=== PATIENT | female | born 1970 | race Caucasian/White ===

== ENCOUNTER → 2016-06-26 | Outpatient (CLI) | payer BC | END | disposition home or self-care (01) | LOC: LABPAT 12:56 | PROVIDERS: ATTEND Orthopaedic Surgery Orthopaedic Surgery of the Spine | DX: Z01.812 Encounter for preprocedural laboratory examination (principal) | CPT/HCPCS: 87070 ==

== ENCOUNTER 2016-07-04 07:55 | Inpatient (IN) | payer BC ==
[2016-06-25 10:38] VITALS: BMI 32.9
[~2016-07-04 07:55] MED LIST: BACITRACIN 50,000 UNIT, POLYMYXIN B 500,000 UNIT in SODIUM CHLORIDE 0.9% IRRIGATIO 1,00... IRRIGATION ONE; DEXAMETHASONE SOD PHOSPHATE 10 MG/ML 1 ML VIAL IV ONE; LIDOCAINE 1% 20 ML VIAL (10MG/ML) FOR IV START INTRADERMA PRN; MIDAZOLAM 2 MG/2 ML VIAL IV PRN; ONDANSETRON 4 MG/2 ML VIAL IVP ONE; SCOPOLAMINE 1.5MG/72HR PATCH TRANSDERM ONE; ceFAZolin 2 GM in SODIUM CHLORIDE 0.9% 100 ML IVPB ONE
[2016-07-04] MEDS: LACTATED RINGERS 1,000 ML IV SCH (08:34)
[2016-07-04] MEDS ORDERED: ONDANSETRON 4 MG/2 ML VIAL IVP ONE (08:40)
[2016-07-04] MEDS ORDERED: BUPIVACAINE LIPOSOME/PF 1.3% 20 ML, BUPIVACAIN-EPI 0.5%-1:200,000 25 ML, SODIUM CHLORID... MISCELLANE ONE ×3 (09:29)
[2016-07-04] MEDS ORDERED: ROPIVACAINE 246.25 MG, EPINEPHrine 0.5 MG, KETOROLAC 30 MG, cloNIDine HCL/PF 80 MCG, WA... MISCELLANE ONE ×5 (09:45)
[2016-07-04] MEDS ORDERED: HYDROmorphone (PF) 1 MG/ML ONE (10:04)
[2016-07-04] MEDS ORDERED: LIDOCAINE 0.5%-EPI 1:200,000 50 ML VIAL SQ ONE (10:04)
[2016-07-04] MEDS ORDERED: SUCCINYLCHOLINE CHLORIDE 100 MG/5 ML SYR IV ONE (10:04)
[2016-07-04] MEDS ORDERED: PROPOFOL 10 MG/ML 20 ML VIAL IV ONE (10:04)
[2016-07-04] MEDS ORDERED: GELATIN SPONGE,ABSORB (LARGE) 1 EACH SPONGE TOPICAL ONE (10:04)
[2016-07-04] MEDS ORDERED: fentaNYL (PF) 50 MCG/ML 2 ML AMP ONE (10:04)
[2016-07-04] MEDS ORDERED: SODIUM CHLORIDE 0.9% IRRIG 1,000 ML BTL IRRIGATION ONE (10:04)
[2016-07-04] MEDS ORDERED: MIDAZOLAM 2 MG/2 ML VIAL ONE (10:04)
[2016-07-04] MEDS ORDERED: HEPARIN SODIUM,PORCINE 10,000 UNIT/ML 1 ML VIAL ONE (10:04)
[2016-07-04] MEDS ORDERED: BUPIVACAINE (PF) 0.25% 30 ML VIAL SQ ONE (10:04)
[2016-07-04] MEDS ORDERED: ePHEDrine 50 MG/ML 1 ML AMP ONE (10:04)
[2016-07-04] MEDS ORDERED: THROMBIN (BOVINE) 5,000 UNIT VIAL TOPICAL ONE (10:04)
[2016-07-04] MEDS ORDERED: LIDOCAINE 1% INJ 10MG/ML (20 ML MDV) ONE (10:04)
[2016-07-04] MEDS ORDERED: ONDANSETRON 4 MG/2 ML VIAL ONE (10:04)
[2016-07-04] MEDS ORDERED: LACTATED RINGERS 1,000 ML IV ONE ×2 (11:56→14:56)
--- NOTE | 2016-07-04 14:17 | FL ---
EXAMINATION TYPE: FL guidance operating room, XR lumbar spine 2 or 3V DATE OF EXAM: 07/04/2016 2:11 PM CLINICAL HISTORY: Low back pain, lumbar fusion TECHNIQUE: Fluoroscopy. Intraoperative 2 views lumbar spine. COMPARISON: None. FINDINGS: Fluoroscopic guidance was provided during lumbar fusion surgical procedure performed by Dr Angel Morales. A total of 202 seconds of fluoroscopic time was utilized during the procedure and several i ntraoperative spot images was acquired. Images acquired show placement of multilevel bilateral pedicles in the lower lumbar spine with metall ic disc spacer placed L4-L5 level. IMPRESSION: As Above.
[2016-07-04] MEDS ORDERED: SODIUM CHLORIDE 0.9% 50 ML with ceFAZolin 2,000 MG IV ONE ×2 (14:20)
[2016-07-04] MEDS ORDERED: ONDANSETRON 4 MG/2 ML VIAL IVP PRN (15:13)
[2016-07-04] MEDS ORDERED: BENZOCAINE/MENTHOL LOZENG 1 EACH LOZENGE MUCOUS MEM PRN (15:13)
[2016-07-04] MEDS ORDERED: HYDROmorphone 1 MG/ML 1 ML SYRINGE IVP PRN (15:13)
--- NOTE | 2016-07-04 15:23 | P.OP ---
Date of Procedure: 07/04/16 Preoperative Diagnosis: Degenerative scoliosis, spinal stenosis, lateral listhesis L4 5, degenerative disc disease Postoperative Diagnosis: Same Anesthesia: GETA Pathology: none sent Condition: stable Disposition: PACU Description of Procedure: DESCRIPTION OF PROCEDURE(S): BRIEF OPERATIVE NOTE Preoperative Diagnosis: Degenerative scoliosis, lateral listhesis L4 5, spinal stenosis L3 4 L4 5, degenerative disc disease Postoperative Diagnosis: Same Procedure: Minimally invasive Laminectomy and decompression with foraminotomies facetectomy L3 4 L4 5 Minimally invasive Posterior lateral decompression and fusion L3 4 L4 5 with facet fusion Minimally invasive Transforaminal lumbar interbody fusion for a 360 fusion L3 4 L4 5 Discectomy for decompression L3 4 L4 5 Placement of interbody cage graft L3 4 L4 5 Bone marrow aspiration through a separate fascial incision using a bone marrow aspirate device from the left iliac crest Local autogenous bone grafting Use of Cell Saver Use of bone graft extenders Surgeon: Dr. Morales Sales Representative Groceries: Sebastian MALONE who is present throughout the entire the case persistence during positioning, dissection, exposure, visualization, and all crucial elements of the case as well as closure. Anesthesia: General anesthesia Estimated blood loss: Approximately 200 mL with 50 given back through Cell Saver Complications: None apparent Components implanted: K2M a minimally invasive [place] screw system with use of 6 screws measuring 6.5 x 45 mm, 2 rods, 2 [place] interbody cages one osteoamp sponge to supplemental local autogenous bone graft and bone marrow aspirate Disposition: To recovery room in good stable condition. OPERATIVE INDICATIONS The patient has had long-standing issues in their lower back and lower extremities. She was found to have a degenerative scoliosis with a lateral listhesis L4 5. She had significant in her disc disease and evidence of stenosis which correlated with her images and clinical findings. The patient has been through conservative treatment. she is not having any prolonged benefit despite aggressive conservative care. We discussed various treatment options including surgery, and the patient wishes to proceed with surgery We discussed the risk, patient's alternatives and benefits of surgery including but not limited to, risk of bleeding risk of infection, risk of need for further surgery, risk of decreased, loss of motion, muscle function, malunion nonunion, hardware failure, nerve damage, paralysis, heart attack, blindness and . OPERATIVE SUMMARY After discussing all the risks, patient alternatives and benefits at length, the patient elected to proceed with surgical intervention, signed informed consent, and presented for their procedure. The patient was seen and examined in the preoperative holding area and the surgical site was marked. The patient was given antibiotics and brought to the operating room. The patient was sedated and intubated by anesthesia in standard fashion. The patient was positioned on to the operating room table in a prone position on the appropriate frame which was well-padded and well molded. We were careful to pad any bony prominences and pressure points. We were careful to maintain the patient's cervical spine and good neutral alignment and position throughout. The patient was prepped and draped in a normal standard fashion. An appropriate timeout and keystone protocol performed. We were able to proceed with the surgery. The local wound area was infiltrated with local anesthetic. I was able utilize C-arm guidance to establish appropriate position over the pedicles bilaterally at the appropriate levels At 34 and 5 bilaterally. With the appropriate levels confirmed was able to make small incisions over the appropriate pedicle sites bilaterally At L3 4 and 5 at L3 4 and 5 bilaterally. Utilizing C-arm in his house able to establish a Jamshidi needle over the lateral aspect of the pedicle and advanced the trocar into the pedicle being careful not to breech superiorly inferiorly medially or laterally. Position was confirmed regularly with AP and lateral images on C-arm. I was able to establish the trocar into the pedicle appropriately into the posterior aspect of the vertebral body bilaterally at the appropriate levels. This was done at each of the pedicle positions and each of the vertebrae. I was able place the guidewire into the trocar and into the vertebral body appropriately under C-arm guidance. Dissection was taken down over the wire to the appropriate starting position for the screw placed. The appropriate length screw was chosen, threaded over the guidewire and screwed appropriately into the pedicle and vertebral body under C-arm guidance in excellent alignment and position with good bony purchase. This is done at each of the screw sites at the appropriate levels At L3 4 and 5 bilaterally. With the screws intact I extended the incision to connect the screw hole sites on the most symptomatic side On the right. I dissected down to establish access over the pars and lamina to the base of the spinous process. I was able to expose the facet joint. The capsule the facet was taken down and showed some facet arthrosis at the joint. I was able to use a combination of curettes and Kerrison rongeurs and a high-speed drill to take down the facet joint and do a facetectomy. Partial laminectomy was also performed. I was able get excellent foraminal decompression and central decompression with undermining across midline to perform a laminectomy centrally and contralaterally. As able get good central decompression. The ligamentum flavum was taken down to further decompress centrally and at bilateral neural foramen. I was able to expose the disc space and visualize the traversing nerve root. No was made of some disc protrusion at the level causing further compression of the nerve root. I was able to establish a annulotomy at the appropriate level protecting soft tissue and neural structures. No was made of some disc desiccation at the disc As well as some disc protrusion. I performed a complete discectomy with a commodation of curettes and rasps and scrapers. I was able get further decompression with a discectomy. I was able get good endplate preparation at the disc space. I sized for the appropriate size interbody spacer protecting the soft tissue and neural structures. The wound was copiously irrigated and suctioned dry. There is no evidence of any dural tear or leak. I was able to pack the disc space with local autogenous bone graft as well as a small amount of infuse which was also placed into the interbody cage itself. Protecting the soft tissue structures and neural structures I was able place the interbody cage in good alignment and good position with good fit and fill at the interbody space. His issues was confirmed with C-arm guidance. Good hemostasis maintained. There is no evidence of any dural tear or leak. The wound was irrigated and suctioned dry.This was done at L4 5 and L3 4 With the hardware intact, intraoperative C-arm imaging was again taken which showed good alignment and position of the hardware at the appropriate levels At L4 5 and L3 4. We were then able to measure, contour and place the rods and appropriate hardware bilaterally. I was able to place capcrews, tighten them down, and shear them off appropriately. The sheared portion was counted and accounted for. With this intact I was able to place the local autogenous bone graft with additional bone graft enhancer as necessary into the posterior lateral gutters and into the decorticated facet joints on the contralateral side. The remainder of thebone grafts placed over the facet joint on the contralateral side after taking down the facet joint capsule. With the bone graft intact, a stable construct, and good decompression at the appropriate levels, we were able to proceed with closure. Good hemostasis was maintained. There is no evidence of dural tear or leak. The fascia was closed for a watertight closure. he subcuticular tissue was closed with absorbable suture. The wound was cleaned and dried and dressed with the appropriate dressing. The drapes were broken down. The patient was gently rolled back onto their hospital bed being careful to maintain their cervical spine and good neutral alignment and position. They were woken up by anesthesia, extubated, and brought to the recovery room in good stable condition. The patient will be admitted to the hospital for appropriate postoperative care , medical management and monitoring. We will continue to follow them closely about the postoperative course.
[2016-07-04] MEDS: HYDROmorphone 1 MG/ML 1 ML SYRINGE IVP PRN ×4 (16:12→23:14)
[2016-07-04] MEDS: SODIUM CHLORIDE 0.9% 1,000 ML IV SCH (17:54)
[2016-07-04] MEDS: ceFAZolin 2 GM in SODIUM CHLORIDE 0.9% 100 ML IVPB SCH ×2 (17:54→23:14)
[2016-07-04] MEDS: oxyCODONE-APAP 10-325MG 1 EACH TAB PO PRN (21:38)
[2016-07-05] MEDS: HYDROmorphone 1 MG/ML 1 ML SYRINGE IVP PRN ×4 (03:14→15:52)
[2016-07-05] MEDS: LACTATED RINGERS 1,000 ML IV SCH (05:41)
[2016-07-05] MEDS: SODIUM CHLORIDE 0.9% 1,000 ML IV SCH ×2 (05:41→18:30)
[2016-07-05] MEDS: DIAZEPAM 5 MG TAB PO PRN ×3 (06:11→21:09)
--- NOTE | 2016-07-05 08:02 | P.PN ---
Progress Note - Text Postoperative day #1 Patient is seen and examined today at bedside. The patient has some pain around the surgical site as expected. She has not been out of bed yet but will try to get up today with physical therapy. Pain is being controlled with medication. Physical Exam Afebrile with stable vital signs Abdomen is soft nontender. Chest has good excursion deep and space expiration The incision site is clean dry and intact. No erythema there is no purulence. The dressings are intact without saturation. Extremities have not had neurologic change from prior to surgery. She has sustained dorsal flexion plantar flexion and EHL intact. Calves and thighs were soft nontender without evidence of DVT. Assessment/Plan Postoperative day #1 status post minimally invasive decompression and fusion L3 4 L4 5 for her degenerative scoliosis and lateral listhesis with stenosis. Patient is progressing as expected from the surgery. We will continue to increase the patient's mobilization with therapy. Hopefully she'll be able to mobilize well with physical therapy. She has her own brace with her and should use her LSO when she is out of bed. We will continue pain control with oral or IV medications. We'll continue to follow patient closely.
[2016-07-05 09:16] LABS: Basophils % (A) 0 %; CH 31.5; CHCM 33.4; Eosinophils # (A) 0.1 k/uL (0-0.7); Eosinophils % (A) 1 %; HCT 34.7 % (34.0-46.0); HDW 2.68; HGB 11.6 gm/dL (11.4-16.0); Luc # (Auto) 0.08; Luc % (Auto) 1; Lymphocytes # (A) 0.8 k/uL (1.0-4.8); Lymphocytes % (A) 9 %; MCH 31.7 pg (25.0-35.0); MCHC 33.5 g/dL (31.0-37.0); MCV 94.8 fL (80.0-100.0); Mean Platelet Volume 8.7; Monocytes # (A) 0.5 k/uL (0-1.0); Monocytes % (A) 5 %; Neutrophils % (A) 84 %; RBC 3.66 m/uL (3.80-5.40); RDW 13.1 % (11.5-15.5); WBC 9.5 k/uL (3.8-10.6); WBC (Perox) 10.04
[2016-07-05 09:55] LABS: Anion Gap 10 mmol/L; Blood Urea Nitrogen 6 mg/dL (7-17); Calcium 8.2 mg/dL (8.4-10.2); Carbon Dioxide 24 mmol/L (22-30); Chloride 104 mmol/L (98-107); Glucose 114 mg/dL (74-99); Non-African American GFR(MDRD) >60 (>60 ml/min/1.73 sqM); Potassium 3.9 mmol/L (3.5-5.1); Sodium 138 mmol/L (137-145)
--- NOTE | 2016-07-05 11:13 | XR ---
EXAMINATION TYPE: XR chest 2V DATE OF EXAM: 07/05/2016 10:56 AM COMPARISON: Prior chest x-ray 10 Oct 2011 HISTORY: Pneumonia, cough and congestion TECHNIQUE: Frontal and lateral views of the chest are obtained. FINDINGS: There is no focal air space opacity, pleural effusion, or pneumothorax seen. The cardiac silhouette size is within normal limits. Patient is rotated. Question some subsegmental changes at the lung bases. The osseous structures are intact. IMPRESSION: There may be some basilar atelectasis, follow-up as indicated.
[2016-07-05] MEDS: oxyCODONE-APAP 10-325MG 1 EACH TAB PO PRN ×2 (12:44→18:29)
[2016-07-05 13:34] LABS: Appearance,Urine Clear (Clear); Bilirubin,Urine Negative (Negative); Glucose,Urine (UA) Negative (Negative); Ketones,Urine Negative (Negative); Leukocyte Esterase,Urine Small (Negative); Mucus,Urine Occasional /hpf; Nitrite,Urine Negative (Negative); Particle Count 2036; Protein,Urine Negative (Negative); RBC,Urine <1 /hpf (0-5); Specific Gravity,Urine 1.004 (1.001-1.035); Squamous Epithelial Cell,Urine 1 /hpf (0-4); UA Billing (MACRO vs. MICRO) MICRO; Urobilinogen,Urine <2.0 mg/dL (<2.0); WBC,Urine 3 /hpf (0-5)
--- NOTE | 2016-07-05 19:55 | CONS ---
DATE OF CONSULTATION: REASON FOR CONSULTATION: Medical management. HISTORY OF PRESENTING ILLNESS: Ms. Kamille Talavera is a 45-year-old female who was seen, evaluated, and examined on the fifth floor while covering for Dr. Broderick. This patient has been admitted to the hospital to the service of Dr. Morales for back pain. The patient recently underwent minimally invasive laminectomy and decompression of L3, 4 and L4, L5. For details, please refer to operative note. The patient has low grade temperature today, but however she is fairly asymptomatic. Denies any urinary symptoms. Denies any cough, congestion. She did have a chest x-ray performed today, which I reviewed, some atelectasis, cannot be excluded. No obvious infiltrate has been identified. The patient did have a urine sent. Culture results and report are not available. Urinalysis; however, is fairly unremarkable. Past medical history is significant for chronic back pain, degenerative joint disease and osteoarthritis, GERD, mood disorder, depression. PAST SURGICAL HISTORY: As above. FAMILY HISTORY AND SOCIAL HISTORY: Otherwise unremarkable and noncontributory. REVIEW OF SYSTEMS: Otherwise unremarkable and noncontributory. Medications at home include: 1. Soma 350 3 times a day. 2. Lexapro 10 mg p.o. daily. 3. Levaquin 250 mg daily. 4. Prilosec 1 mg daily. 5. Lyrica 300 mg daily. 6. ( ) is 200 mg daily. 7. Oxycodone with Tylenol 1 tablet q.4 hours. REVIEW OF SYSTEMS: Otherwise unremarkable and noncontributory. On examination, blood pressure is 124/77, respiratory rate 18, pulse 110, temperature 98, T-max is 101. HEENT EXAMINATION: Otherwise atraumatic. Normocephalic. Pharynx is clear without exudate. Neck is supple without any lymphadenopathy, jugular venous distention or carotid bruit. LUNGS: Bilateral good air entry is present without significant rales, rhonchi or rub. HEART: Regular rate and rhythm. S1 and S2 audible. ABDOMEN: Soft. No rebound or rigidity. EXTREMITIES: +1 peripheral pulses. NEUROLOGICAL EXAMINATION: Otherwise awake. IMPRESSION: 1. Back pain beneath is status post minimally invasive laminectomy L3, L4,and L4, L5. 2. Postoperative fever, overall, no obvious reason for spiking fever is present and likely postoperative in nature. We will monitor and observe. Continue deep breathing exercise. 3. Mood disorder, depression. Plan and recommendation: As above. Continue supportive care. Continue deep breathing exercises and incentive spirometry. In case of discharge, recommend follow with Dr. Broderick.
[2016-07-06] MEDS: HYDROmorphone 1 MG/ML 1 ML SYRINGE IVP PRN ×3 (00:11→14:51)
[2016-07-06] MEDS: oxyCODONE-APAP 10-325MG 1 EACH TAB PO PRN ×3 (03:42→18:24)
[2016-07-06 07:43] LABS: Basophils % (A) 0 %; CH 31.6; CHCM 33.7; Eosinophils # (A) 0.3 k/uL (0-0.7); Eosinophils % (A) 2 %; HCT 34.6 % (34.0-46.0); HDW 2.76; HGB 11.5 gm/dL (11.4-16.0); Luc # (Auto) 0.12; Luc % (Auto) 1; Lymphocytes # (A) 1.7 k/uL (1.0-4.8); Lymphocytes % (A) 15 %; MCH 31.4 pg (25.0-35.0); MCHC 33.3 g/dL (31.0-37.0); MCV 94.2 fL (80.0-100.0); Mean Platelet Volume 8.9; Monocytes # (A) 0.5 k/uL (0-1.0); Monocytes % (A) 5 %; Neutrophils # (A) 8.7 k/uL (1.3-7.7); Neutrophils % (A) 77 %; RBC 3.67 m/uL (3.80-5.40); RDW 13.1 % (11.5-15.5); WBC 11.3 k/uL (3.8-10.6); WBC (Perox) 11.65
--- NOTE | 2016-07-06 08:30 | P.PN ---
Progress Note - Text Orthopedic Spine Patient is a pleasant 45-year-old female who is seen and examined at the bedside following posterior lateral decompression and fusion performed Saturday. Patient states they are doing ok postsurgically. She has been able to ambulate to the restroom. She continues to use a walker to aid in ambulation. She has been wearing her LSO brace while up and ambulating activities. She states she is able to move but slowly. She still has some difficulty with pain control and continues to be on oral and IV pain medications. She states she continues to have some pain and surgical site. She is currently not stressing any significant lower extremity radiculopathy or weakness symptoms bilaterally. Currently does not complain of nausea, vomiting , fever, or chills. Patient is eating and voiding freely without difficulty. Physical Exam Lumbar Fusion: Status post surgical day number 2 Patient is awake, alert, and oriented 3 Vital signs stable Good chest excursion with deep inspiration and expiration Abdomen soft nontender Dorsiflexion, plantarflexion, and extensor hallucis longus positive sustained bilaterally No signs or symptoms of DVT; no calf pain; pneumatic cuffs intact bilateral lower extremities Dressing is dry and intact with some dried blood but no active drainage; no erythema, purulence, or signs of infection Neurovascularly intact bilaterally lower extremities Pertinent studies taken on 07/06/2016: WBC 11.3 RBC 3.67 Hemoglobin 11.5 Neutrophils 8.7 Assessment: Minimally invasive posterior lateral decompression and fusion L3-4 and L4-5 Transforaminal lumbar interbody fusion L3-4 and L4-5 Low back pain Degenerative scoliosis Plan: 1. Ambulate as tolerated; work with Physical Therapy to increase mobilization 2. Continue pain control with oral medications; we will plan to try to wean her off IV pain medications with plans to discontinue IV pain medications today if her pain is able to be controlled with oral medications 3. Dressing to remain intact; we'll plan to change her dressing prior to discharge to nonstick Telfa and Tegaderm 4. Medical management can continue to manage patient for patient's other medical issues 5. We will continue to follow the patient closely; If the patient's pain is able to be controlled, we'll plan for discharge home tomorrow, 07/07/2016 6. Patient can follow-up with Sebastian Gaitan PA-C or Dr. Ty Morales at [facility] in 2-3 weeks following discharge
[2016-07-06] MEDS: SODIUM CHLORIDE 0.9% 1,000 ML IV SCH (08:34)
--- NOTE | 2016-07-06 15:30 | PN ---
Kamille Talavera is a 45-year-old female who had lumbar spine surgery and is doing well. She had a spiking fever; however, that has resolved now. No new fever has been noted. Her hemodynamic status is stable. She is breathing comfortably. No obvious distress present. Blood pressure 115/67, respiratory rate 20, pulse 101, temperature 98, saturation 94%. HEENT: Unremarkable. NECK: Supple. LUNGS: Good air entry bilaterally. HEART: Regular rate, rhythm. ABDOMEN: Soft. NEUROLOGICAL EXAMINATION: Awake and alert. IMPRESSION: 1. Fever, like nonspecific, postoperative, expected. So far urine culture and chest x-ray have been unremarkable. Will continue deep breathing exercises and incentive spirometry. 2. Back pain related to lumbar spinal stenosis, status post laminectomy. See operative details. Doing well.
[2016-07-06] MEDS: DIAZEPAM 5 MG TAB PO PRN (16:39)
[2016-07-06 16:53] VITALS: RESP 18
[2016-07-07] MEDS: DIAZEPAM 5 MG TAB PO PRN ×2 (00:20→06:22)
[2016-07-07] MEDS: oxyCODONE-APAP 10-325MG 1 EACH TAB PO PRN ×2 (00:21→06:22)
[2016-07-07] MEDS: SODIUM CHLORIDE 0.9% 1,000 ML IV SCH (00:32)
[2016-07-07 07:04] LABS: Basophils % (A) 0 %; CH 31.7; Eosinophils # (A) 0.5 k/uL (0-0.7); Eosinophils % (A) 7 %; HCT 33.7 % (34.0-46.0); HDW 2.85; HGB 11.1 gm/dL (11.4-16.0); Luc # (Auto) 0.13; Luc % (Auto) 2; Lymphocytes # (A) 1.5 k/uL (1.0-4.8); Lymphocytes % (A) 20 %; MCH 30.9 pg (25.0-35.0); MCV 93.7 fL (80.0-100.0); Mean Platelet Volume 9.1; Monocytes # (A) 0.4 k/uL (0-1.0); Monocytes % (A) 5 %; Neutrophils # (A) 5.1 k/uL (1.3-7.7); Neutrophils % (A) 67 %; RBC 3.59 m/uL (3.80-5.40); WBC 7.6 k/uL (3.8-10.6); WBC (Perox) 8.16
[2016-07-07 08:23] VITALS: BP 135/74; PULSE 94; TEMP 99.1
--- NOTE | 2016-07-07 11:44 | P.DS ---
Providers Date of admission: 07/04/16 07:55 Expected date of discharge: 07/07/16 Attending physician: Sae Morales Primary care physician: Wade Broderick - Discharge Diagnosis(es) (1) Lumbar spinal stenosis Current Visit: Yes Status: Acute (2) Degenerative disc disease, lumbar Current Visit: Yes Status: Acute Hospital Course: This is a 45-year-old female with long history of low back pain. She has history of degenerative scoliosis, lumbar foraminal stenosis and degenerative disc disease. She has failed outpatient conservative treatment and presents discuss surgical options. After discussion and consideration the patient elects to proceed with minimally invasive decompression and fusion with transforaminal interbody fusion at L3-4, L4-5. The patient is admitted to [facility] on 07/04/2016 for the above-mentioned procedure. The procedures performed without convocation or sequelae. Patient's doing well postoperely. She is ambulating well with minimal assistance. Dressing is changed on postoperative day #3. Patient's vital signs and labs are stable. The patient is discharged to home on postoperative day 3 in good condition. Plan - Discharge Summary New Discharge Prescriptions: Diazepam [Valium] 5 mg PO QID PRN #40 tab PRN Reason: Anxiety Discharge Medication List Carisoprodol [Soma] 350 mg PO TID PRN 04/13/15 [History] Escitalopram Oxalate [Lexapro] 10 mg PO HS 04/13/15 [History] Omeprazole [PriLOSEC] 20 mg PO HS 04/13/15 [History] Pregabalin [Lyrica] 300 mg PO HS 04/13/15 [History] Sulindac [Clinoril] 200 mg PO HS 04/13/15 [History] oxyCODONE HCL/ACETAMINOPHEN [Percocet 10-325 mg] 1 tab PO Q4H PRN 04/13/15 [ History] Levofloxacin [Levaquin] 250 mg PO DAILY 07/04/16 [History] Diazepam [Valium] 5 mg PO QID PRN #40 tab 07/07/16 [Rx] Follow up Appointment(s)/Referral(s): Sebastian Gaitan, PAC [PHYSICIAN GUEST SERVICES MANAGER] - 2 Weeks (Patient may follow-up with Sebastian Gaitan PA-C or Dr. Ty Morales at [facility] in 2-3 weeks following discharge. ) Activity/Diet/Wound Care/Special Instructions: 1. Patient may shower Tegaderm and Silverlon dressing intact. 2. Patient may remove Tegaderm and Silverlon dressing in 3 days and shower without a dressing at that time. 3. Patient should keep Steri-Strips intact and allow them to fall off naturally. 4. Patient should refrain from driving until at least after their first follow- up appointment in the office. 5. Patient should avoid excessive bending, twisting, and lifting; no lifting greater than 10 pounds 6. Do not soak in tub 7. The patient will seek refills on her Percocet from Dr. Broderick. She has 9 days worth of medication at home. Discharge Disposition: HOME SELF-CARE
--- NOTE | 2016-07-07 12:38 | PN ---
Kamille Talavera is a 45-year-old female, seen, evaluated, examined while covering for Dr. Broderick. Clinically, the patient is doing well, awake and alert. Breathing comfortably. Her severity of pain the back has improved. She is able to roll around. Her hemodynamic status is much stable. No spiking fever has been noted. Last set of vitals include blood pressure 135/74, respiratory rate 18, pulse 94, temperature 99, saturation 98%. HEENT: Unremarkable. NECK: Supple. LUNGS: Good air entry bilaterally. HEART: Regular rate and rhythm. ABDOMEN: Soft. NEUROLOGICAL EXAMINATION: Otherwise, awake and alert. Labs reviewed. Medications reviewed. White cell count is down to 7600, hemoglobin 11, hematocrit 33. Platelet count 164,000. Last chest x-ray performed 07/05/2016 reviewed as well. IMPRESSION: 1. Back pain status post spine surgery, laminectomy and lower lumbar vertebra, doing well. 2. Basal atelectasis. 3. Postop fever is resolved now. PLAN: To continue deep breathing exercises, incentive spirometry. Increase activity as tolerated. From medical standpoint, can be discharged home. Will follow with Dr. Broderick in outpatient setting.
== END 2016-07-07 12:15 | disposition home or self-care (01) | DRG 460 ==
LOC: 2ORMAIN 07:55 → 5ONC 15:32
PROVIDERS: ADMIT Orthopaedic Surgery Orthopaedic Surgery of the Spine; ATTEND Orthopaedic Surgery Orthopaedic Surgery of the Spine
PROC: 07DR3ZZ Extraction of Iliac Bone Marrow, Percutaneous Approach (ICD-10-PCS; principal; 2016-07-04 09:45)
PROC: 0SG1071 Fusion of 2 or more Lumbar Vertebral Joints with Autologous Tissue Substitute, Posterior Approach, Posterior Column, Open Approach (ICD-10-PCS; principal; 2016-07-04 09:45)
PROC: 0SG10AJ Fusion of 2 or more Lumbar Vertebral Joints with Interbody Fusion Device, Posterior Approach, Anterior Column, Open Approach (ICD-10-PCS; principal; 2016-07-04 09:45)
PROC: 0SB20ZZ Excision of Lumbar Vertebral Disc, Open Approach (ICD-10-PCS; principal; 2016-07-04 09:45)
DX: M48.06 Spinal stenosis, lumbar region (principal); M41.80 Other forms of scoliosis, site unspecified; F32.9 Major depressive disorder, single episode, unspecified; J98.11 Atelectasis; M43.17 Spondylolisthesis, lumbosacral region; M51.36 Other intervertebral disc degeneration, lumbar region; Z79.899 Other long term (current) drug therapy; M79.7 Fibromyalgia; Z72.0 Tobacco use; R50.9 Fever, unspecified; K21.9 Gastro-esophageal reflux disease without esophagitis
CPT/HCPCS: 71020; 72100; 80048; 81001; 85025; 86850; 86900; 86901; 87086

== ENCOUNTER → 2017-06-25 | Outpatient (CLI) | payer BC ==
--- NOTE | 2017-06-26 08:39 | MM ---
Reason for exam: screening (asymptomatic). Last mammogram was performed 2 years and 6 months ago. Physical Findings: A clinical breast exam by your physician is recommended on an annual basis and results should be correlated with mammographic findings. MG Screening Mammo w CAD Bilateral CC and MLO view(s) were taken. Prior study comparison: December 20, 2014, mammogram, performed at [facility]. April 30, 2011, mammogram, performed at [facility]. The breast tissue is heterogeneously dense. This may lower the sensitivity of mammography. Finding #1: There is a 8 mm indistinct lobulated mass in the upper outer quadrant, posterior position of the right breast. Finding #2: There are typically benign round, diffuse and grouped calcifications in both breasts. Focal asymmetry left breast 1.4cm posterior depth seen best on MLO view. ASSESSMENT: Incomplete: need additional imaging evaluation, BI-RAD 0 RECOMMENDATION: Special view mammogram of both breasts. If lesion persists on supplemental views, image directed ultrasound is recommended. [facility] will attempt to contact patient to return for supplemental views and ultrasound if indicated.
== END | disposition home or self-care (01) ==
LOC: RADMAMWWP 08:05
PROVIDERS: ATTEND Family Medicine
DX: Z12.31 Encounter for screening mammogram for malignant neoplasm of breast (principal)
CPT/HCPCS: 77067

== ENCOUNTER → 2017-07-03 | Outpatient (CLI) | payer BC ==
--- NOTE | 2017-07-04 08:16 | MM ---
Reason for exam: additional evaluation requested from abnormal screening. Last mammogram was performed less than 1 month ago. Physical Findings: Nurse did not find any significant physical abnormalities on exam. MG Work Up Mamm w CAD BILAT Bilateral spot compression CC, spot compression MLO, and LM view(s) were taken. Prior study comparison: June 25, 2017, bilateral MG screening mammo w CAD. December 20, 2014, mammogram, performed at [facility]. Finding: There is a 1.2cm microlobulated lobulated mass in the upper outer quadrant, posterior position of the left breast and 8mm lobular, oval density in the right breast. Both persists on additional views. These results were verbally communicated with the patient and result sheet given to the patient on 07/03/17. ASSESSMENT: Incomplete: need additional imaging evaluation, BI-RAD 0 RECOMMENDATION: Ultrasound of both breasts.
--- NOTE | 2017-07-04 08:22 | USB ---
Reason for exam: additional evaluation requested from abnormal screening. [facility] Breast Workup Limited [facility] Right breast ultrasound demonstrates a 8 x 5 x 7mm oval, lobular, hypoechoic lesion at 12 o'clock for which a 6 month follow up is recommended, a 4 x 2 x 3mm lobular lesion too small to characterize at 12 o'clock for which a 6 month follow up is recommended, a 4 x 3 x 4mm lobular, cystic lesion at 1 o'clock for which a 6 month follow up is recommended and a 7 x 2 x 3mm solid, hypoechoic lesion at 1 o'clock for which a 6 month follow up is recommended. (3 of the right breast lesions all have a similar appearance for which a 6 month follow up is recommended). Left breast ultrasound demonstrates a 4 x 3 x 3mm oval, cystic lesion at 3 o'clock, a 14 x 7 x 14mm lobular, hypoechoic and hyperechoic lesion at 1 o'clock for which a 6 month follow up is recommended and a 5 x 3 x 6mm mixed lesion at 10 o'clock. These results were verbally communicated with the patient and result sheet given to the patient on 07/03/17. ASSESSMENT: Probably benign, BI-RAD 3 RECOMMENDATION: Follow-up diagnostic mammogram and ultrasound of both breasts in 6 months.
== END | disposition home or self-care (01) ==
LOC: RADMAMWWP 15:37
PROVIDERS: ATTEND Family Medicine
DX: R92.2 Inconclusive mammogram (principal); R92.8 Other abnormal and inconclusive findings on diagnostic imaging of breast
CPT/HCPCS: 77066